=== PATIENT | male | born 1960 | race African-American/Black ===

== ENCOUNTER 2021-06-19 19:11 | Observation (INO) | payer OTHER ==
[2021-06-19 21:33] LABS: BASO % 1.2 % (0-2.0); EOS % 3.1 % (0-4.5); HEMATOCRIT 38.1 % (35.4-49); HEMOGLOBIN 12.7 GM/dL (11.7-16.9); LYMPH % 30.5 % (8-40); MCH 27.9 pg (25.7-33.7); MCHC 33.3 g/dl (32.0-35.9); MEAN CELL VOLUME 83.9 fl (80-96); MEAN PLT VOLUME 7.7 fl (7.5-11.1); NEUT % 57.2 % (42.8-82.8); PLATELET COUNT 274 10^3/uL (134-434); RBC 4.54 M/mm3 (4.00-5.60); RDW 15.7 % (11.9-15.9)
[2021-06-19 21:56] LABS: CALCIUM 8.7 mg/dL (8.5-10.1)
[2021-06-19 21:57] LABS: ALBUMIN 3.1 g/dl (3.4-5.0); BLOOD UREA NITROGEN 12.2 mg/dL (7-18); MAGNESIUM 2.3 mg/dL (1.8-2.4)
[2021-06-19 22:00] LABS: CREATININE 1.1 mg/dL (0.55-1.3)
[2021-06-19 22:01] LABS: BILIRUBIN,TOTAL 0.3 mg/dL (0.2-1); TOT PROT 7.4 g/dl (6.4-8.2)
[2021-06-19 22:05] LABS: N-TERMINAL BNP 67.4 pg/ml (5-125)
[2021-06-20] MEDS ORDERED: INSULIN (LEVEMIR) 100 UNITS/ML UNITS SQ ONE ×2 (00:47→01:25)
[2021-06-20] MEDS ORDERED: ALBUTEROL SO4 HFA INHALER IH PRN (02:11)
[2021-06-20] MEDS ORDERED: amLODIPine BESYLATE 5 MG TABLET (FP) PO ONE (04:03)
[2021-06-20 04:44] VITALS: BMI 29.5
[2021-06-20] MEDS: BRIMONIDINE TARTRATE 0.15% OPHTHALMIC 5 ML BOTTLE OS SCH ×3 (06:02→21:18)
[2021-06-20] MEDS: INSULIN SLIDING SCALE (NOVOLOG) 1 VIAL SQ SCH ×3 (06:03→17:51)
[2021-06-20 08:01] LABS: HEMATOCRIT 36.4 % (35.4-49); HEMOGLOBIN 12.3 GM/dL (11.7-16.9); MCH 27.9 pg (25.7-33.7); MCHC 33.7 g/dl (32.0-35.9); MEAN CELL VOLUME 82.9 fl (80-96); MEAN PLT VOLUME 7.7 fl (7.5-11.1); PLATELET COUNT 237 10^3/uL (134-434); RDW 15.2 % (11.9-15.9); WHITE BLOOD COUNT 6.1 K/mm3 (4.0-10.0)
[2021-06-20 08:22] LABS: CALCIUM 8.5 mg/dL (8.5-10.1)
[2021-06-20 08:23] LABS: ALBUMIN 3.1 g/dl (3.4-5.0); BLOOD UREA NITROGEN 13.1 mg/dL (7-18); MAGNESIUM 1.9 mg/dL (1.8-2.4)
[2021-06-20 08:26] LABS: CREATININE 0.9 mg/dL (0.55-1.3); PHOSPHOROUS 3.8 mg/dL (2.5-4.9)
[2021-06-20 08:27] LABS: TOT PROT 7.2 g/dl (6.4-8.2)
[2021-06-20 08:28] LABS: BILIRUBIN,TOTAL 0.5 mg/dL (0.2-1)
[2021-06-20] MEDS ORDERED: PATIENT'S OWN MEDICATION (NON-FORMULARY) (Dorzolamide Hcl/Timolol Maleat [Cosopt Eye Drops OP SCH (10:00)
[2021-06-20] MEDS: BUDESONIDE/FORMETEROL FUMARATE 160/4.5 mcg INHALER IH SCH ×2 (11:15→21:19)
[2021-06-20] MEDS: levETIRAcetam 500 MG TABLET (FP) PO SCH ×2 (11:15→21:18)
[2021-06-20] MEDS: PANTOPRAZOLE 40 MG TABLET PO SCH (11:15)
[2021-06-20] MEDS: ENOXAPARIN NA (PORCINE) 40 MG/0.4 ML DISP.SYRIN SQ SCH (11:15)
[2021-06-20] MEDS ORDERED: PATIENT'S OWN MEDICATION (NON-FORMULARY) (Dorzolamide Hcl/Timolol Maleat [Cosopt Eye Drops OU SCH (15:23)
[2021-06-20] MEDS ORDERED: NIFEdipine E.R 60 MG TABLET PO ONE (17:00)
[2021-06-20] MEDS: CLOTRIMAZOLE/BETAMET DIPROP 15 GM TUBE TP SCH ×2 (17:52→21:18)
[2021-06-20] MEDS: DORZOLAMIDE 2% HCL OPHTHALMIC SOLUTION 10 ML BOTTLE OU SCH (22:25)
[2021-06-20] MEDS: TIMOLOL 0.5% OPHTHALMIC SOL 5 ML BOTTLE OU SCH (22:26)
[2021-06-20] MEDS ORDERED: DEXAMETHASONE 0.5 MG TABLET PO ONE (23:00)
[2021-06-20] MEDS ORDERED: MELATONIN 5 MG TABLETS PO ONE (23:32)
[2021-06-21] MEDS ORDERED: oxyCODONE HCL 5 MG TABLET PO ONE (01:41)
[2021-06-21] MEDS: BRIMONIDINE TARTRATE 0.15% OPHTHALMIC 5 ML BOTTLE OS SCH (06:18)
[2021-06-21] MEDS: INSULIN SLIDING SCALE (NOVOLOG) 1 VIAL SQ SCH (06:18)
[2021-06-21 09:03] VITALS: BP 140/87; PULSE 80; TEMP 98
[2021-06-21] MEDS ORDERED: NIFEdipine E.R 60 MG TABLET PO SCH (10:00)
[2021-06-21] MEDS: CLOTRIMAZOLE/BETAMET DIPROP 15 GM TUBE TP SCH (11:22)
[2021-06-21] MEDS: levETIRAcetam 500 MG TABLET (FP) PO SCH (11:22)
[2021-06-21] MEDS: ENOXAPARIN NA (PORCINE) 40 MG/0.4 ML DISP.SYRIN SQ SCH (11:22)
[2021-06-21] MEDS: PANTOPRAZOLE 40 MG TABLET PO SCH (11:22)
[2021-06-21] MEDS: BUDESONIDE/FORMETEROL FUMARATE 160/4.5 mcg INHALER IH SCH (11:23)
[2021-06-21] MEDS: TIMOLOL 0.5% OPHTHALMIC SOL 5 ML BOTTLE OU SCH (11:23)
[2021-06-21] MEDS: DORZOLAMIDE 2% HCL OPHTHALMIC SOLUTION 10 ML BOTTLE OU SCH (11:23)
== END 2021-06-21 10:22 | disposition left against medical advice (07) ==
LOC: JER 19:11 → JERBED 21:27 → INTOOBSV 21:27 → J5S 06-20 04:01
PROVIDERS: ADMIT Hospitalist
PROC: 3E013VG Introduction of Insulin into Subcutaneous Tissue, Percutaneous Approach (ICD-10-PCS; principal; 2021-06-19)
DX: Z04.89 Encounter for examination and observation for other specified reasons (principal); Z87.820 Personal history of traumatic brain injury; M87.059 Idiopathic aseptic necrosis of unspecified femur; D32.9 Benign neoplasm of meninges, unspecified; M62.81 Muscle weakness (generalized); M79.606 Pain in leg, unspecified; E11.65 Type 2 diabetes mellitus with hyperglycemia; D32.0 Benign neoplasm of cerebral meninges; H54.7 Unspecified visual loss; I10 Essential (primary) hypertension; J45.909 Unspecified asthma, uncomplicated; R26.2 Difficulty in walking, not elsewhere classified; M54.9 Dorsalgia, unspecified
CPT/HCPCS: 36415; 71045-TC-FY; 74177-TC; 80053; 82570; 82962; 83735; 83880; 84100; 84585; 85025; 85027; 93005; 93010; 93970-TC; 99285-25; C9803; G0378; J8540; Q9967; U0003; U0005

== ENCOUNTER 2024-01-26 12:52 | Inpatient (IN) | payer OTHER ==
[2024-01-26 15:20] LABS: BASO % 0.5 % (0-2.0); EOS % 3.3 % (0-4.5); HEMATOCRIT 33.7 % (35.4-49); LYMPH % 28.6 % (8-40); MCH 27.6 pg (25.7-33.7); MCHC 32.6 g/dl (32.0-35.9); MEAN CELL VOLUME 84.6 fl (80-96); MONO % 13.3 % (3.8-10.2); NEUT % 54.3 % (42.8-82.8); PLATELET COUNT 262 10^3/uL (134-434); RBC 3.98 M/mm3 (4.00-5.60); RDW 13.9 % (11.9-15.9); WHITE BLOOD COUNT 9.3 K/mm3 (4.0-10.0)
[2024-01-26 15:45] LABS: POTASSIUM 4.8 mmol/L (3.5-5.1)
[2024-01-26 15:47] LABS: CALCIUM 8.9 mg/dL (8.5-10.1)
[2024-01-26 15:48] LABS: ALBUMIN 2.9 g/dl (3.4-5.0); BLOOD UREA NITROGEN 47.2 mg/dL (7-18); MAGNESIUM 2.6 mg/dL (1.8-2.4)
[2024-01-26 15:51] LABS: CREATININE 1.4 mg/dL (0.55-1.3)
[2024-01-26 15:52] LABS: BILIRUBIN,TOTAL 0.2 mg/dL (0.2-1); TOT PROT 7.1 g/dl (6.4-8.2)
[2024-01-26] MEDS: SODIUM CHLORIDE 1,000 ML IV STA (16:48)
[2024-01-26] MEDS: D5-1/2NS+20 MEQ KCL - 20 MEQ/1,000 ML INFUS.BAG IV SCH (16:49)
[2024-01-26 18:16] LABS: HIV INTERPRETATION NEGATIVE (NEGATIVE)
[2024-01-26 19:57] VITALS: BMI 20.3
[2024-01-26] MEDS: ALBUTEROL SO4 2.5/IPRATROPIUM 0.5 INH SOL 3 ML VIAL.NEB. NEB SCH (20:00)
[2024-01-26] MEDS ORDERED: PATIENT'S OWN MEDICATION (NON-FORMULARY) (Brivaracetam 100 MG Tablet) PO SCH (22:00)
[2024-01-26] MEDS: GABAPENTIN 100 MG CAPSULE PO SCH (22:47)
[2024-01-26] MEDS: levETIRAcetam 500 MG TABLET (FP) PO SCH (22:47)
[2024-01-26] MEDS: traZODone HCL 50 MG TABLET (FP) PO SCH (22:47)
[2024-01-26] MEDS: HEPARIN NA (PORCINE) 5,000 UNITS/ML 1ML VIAL SQ SCH (22:48)
[2024-01-26] MEDS: BRIMONIDINE TARTRATE 0.15% OPHTHALMIC 5 ML BOTTLE OS SCH (23:08)
[2024-01-26] MEDS: DORZOLAMIDE HCL/TIMOLOL OPHTHALMIC SOLUTION 10 ML BOTTLE OD SCH (23:08)
[2024-01-26] MEDS: BUDESONIDE/FORMETEROL FUMARATE 160/4.5 mcg INHALER IH SCH (23:09)
[2024-01-27] MEDS: levETIRAcetam 500 MG/5 ML INJECTION VIAL IVPB ONE (01:46)
[2024-01-27] MEDS: PANTOPRAZOLE 40 MG TABLET PO SCH (09:55)
[2024-01-27] MEDS ORDERED: PATIENT'S OWN MEDICATION (NON-FORMULARY) (Tenofovir Alafenamide 25 MG Tablet) PO SCH (10:00)
[2024-01-27 10:01] LABS: BASO % 0.6 % (0-2.0); EOS % 2.4 % (0-4.5); HEMATOCRIT 29.2 % (35.4-49); HEMOGLOBIN 9.7 GM/dL (11.7-16.9); LYMPH % 32.3 % (8-40); MCH 27.7 pg (25.7-33.7); MCHC 33.2 g/dl (32.0-35.9); MEAN CELL VOLUME 83.2 fl (80-96); MEAN PLT VOLUME 8.2 fl (7.5-11.1); MONO % 12.2 % (3.8-10.2); NEUT % 52.5 % (42.8-82.8); PLATELET COUNT 238 10^3/uL (134-434); RBC 3.51 M/mm3 (4.00-5.60); RDW 13.5 % (11.9-15.9); WHITE BLOOD COUNT 6.9 K/mm3 (4.0-10.0)
[2024-01-27 10:15] LABS: POTASSIUM 3.7 mmol/L (3.5-5.1)
[2024-01-27 10:22] LABS: ALBUMIN 2.5 g/dl (3.4-5.0); CALCIUM 8.6 mg/dL (8.5-10.1); MAGNESIUM 2.3 mg/dL (1.8-2.4)
[2024-01-27 10:25] LABS: CREATININE 1.1 mg/dL (0.55-1.3)
[2024-01-27 10:27] LABS: BILIRUBIN,TOTAL 0.2 mg/dL (0.2-1); TOT PROT 6.4 g/dl (6.4-8.2)
[2024-01-27] MEDS: DEXTROSE 5%-0.45% SALINE 1,000 ML IV SCH (14:27)
[2024-01-28] MEDS: levETIRAcetam 500 MG/5 ML INJECTION VIAL IVPB SCH (02:56)
[2024-01-29] MEDS: PNEUMOC 20-VAL CONJ-DIP CRM/PF 0.5 ML SYRINGE IM ONE (21:37)
[2024-01-30] MEDS: ASPIRIN COATED 81 MG TABLET.EC PO SCH (10:35)
[2024-01-30] MEDS: ATORVASTATIN CA 40 MG TABLET (FP) PO SCH (22:05)
[2024-01-31 09:39] LABS: INR 1.23 (0.83-1.09); PROTHROMBIN TIME (PATIENT) 13.8 SEC (9.7-13.0)
[2024-01-31 09:42] LABS: BASO % 0.4 % (0-2.0); EOS % 2.8 % (0-4.5); HEMATOCRIT 27.9 % (35.4-49); HEMOGLOBIN 9.4 GM/dL (11.7-16.9); LYMPH % 31.6 % (8-40); MCH 27.8 pg (25.7-33.7); MCHC 33.6 g/dl (32.0-35.9); MEAN CELL VOLUME 82.8 fl (80-96); MEAN PLT VOLUME 7.7 fl (7.5-11.1); MONO % 12.2 % (3.8-10.2); PLATELET COUNT 233 10^3/uL (134-434); RBC 3.37 M/mm3 (4.00-5.60); RDW 13.6 % (11.9-15.9); WHITE BLOOD COUNT 6.8 K/mm3 (4.0-10.0)
[2024-01-31 10:01] LABS: POTASSIUM 3.7 mmol/L (3.5-5.1)
[2024-01-31 10:04] LABS: CALCIUM 8.3 mg/dL (8.5-10.1)
[2024-01-31 10:06] LABS: ALBUMIN 2.5 g/dl (3.4-5.0); BLOOD UREA NITROGEN 19.8 mg/dL (7-18)
[2024-01-31 10:08] LABS: CREATININE 1.4 mg/dL (0.55-1.3)
[2024-01-31 10:11] LABS: BILIRUBIN,TOTAL 0.3 mg/dL (0.2-1); TOT PROT 6.5 g/dl (6.4-8.2)
[2024-01-31] MEDS: LATANOPROST 0.005% OPHTH SOLN 2.5ML BOTTLE OU SCH (22:14)
[2024-02-02] MEDS: IOHEXOL (OMNIPAQUE IV) 350 MG/ML - 100 ML BOTTLE GT ONE (17:29)
[2024-02-03] MEDS: PANTOPRAZOLE SODIUM 40 MG VIAL IVPB ONE (09:12)
[2024-02-03 11:21] LABS: BASO % 0.5 % (0-2.0); EOS % 2.7 % (0-4.5); HEMATOCRIT 30.8 % (35.4-49); HEMOGLOBIN 10.2 GM/dL (11.7-16.9); LYMPH % 25.9 % (8-40); MCH 27.5 pg (25.7-33.7); MCHC 33.2 g/dl (32.0-35.9); MEAN CELL VOLUME 82.8 fl (80-96); MEAN PLT VOLUME 7.7 fl (7.5-11.1); MONO % 10.6 % (3.8-10.2); NEUT % 60.3 % (42.8-82.8); PLATELET COUNT 271 10^3/uL (134-434); RBC 3.72 M/mm3 (4.00-5.60); RDW 13.3 % (11.9-15.9)
[2024-02-03 11:36] LABS: POTASSIUM 3.8 mmol/L (3.5-5.1)
[2024-02-03 11:41] LABS: ALBUMIN 2.7 g/dl (3.4-5.0); BLOOD UREA NITROGEN 11.7 mg/dL (7-18)
[2024-02-03 11:42] LABS: CALCIUM 8.9 mg/dL (8.5-10.1)
[2024-02-03 11:44] LABS: CREATININE 1.2 mg/dL (0.55-1.3); PHOSPHOROUS 3.1 mg/dL (2.5-4.9)
[2024-02-03 11:46] LABS: BILIRUBIN,TOTAL 0.3 mg/dL (0.2-1); TOT PROT 6.8 g/dl (6.4-8.2)
[2024-02-03] MEDS: amLODIPine BESYLATE 5 MG TABLET (FP) NGT SCH (14:33)
[2024-02-03] MEDS: traZODone HCL 50 MG TABLET (FP) NGT SCH (21:46)
[2024-02-03] MEDS: GABAPENTIN 250 MG/5 ML ORAL SOLUTION, 470 ML BOTTLE NGT SCH (21:47)
[2024-02-03] MEDS: ATORVASTATIN CA 40 MG TABLET (FP) NGT SCH (21:47)
[2024-02-04] MEDS: ACETAMINOPHEN 325 MG TABLET (FP) PO PRN (20:48)
[2024-02-05] MEDS ORDERED: levETIRAcetam 500 MG/5 ML ORAL SOLUTION (UNIT-DOSE CUPS) PO SCH (12:15)
[2024-02-05] MEDS: levETIRAcetam 500 MG/5 ML ORAL SOLUTION (UNIT-DOSE CUPS) GT SCH (12:16)
[2024-02-06] MEDS ORDERED: ACETAMINOPHEN 650 MG/20.3 ML ORAL SOLUTION (CUPS) PO PRN (10:17)
[2024-02-06 11:04] LABS: HEMATOCRIT 26.3 % (35.4-49); HEMOGLOBIN 8.7 GM/dL (11.7-16.9); MCH 27.8 pg (25.7-33.7); MEAN PLT VOLUME 8.4 fl (7.5-11.1); PLATELET COUNT 311 10^3/uL (134-434); RBC 3.13 M/mm3 (4.00-5.60); RDW 13.9 % (11.9-15.9); WHITE BLOOD COUNT 15.4 K/mm3 (4.0-10.0)
[2024-02-06 11:19] LABS: POTASSIUM 4.8 mmol/L (3.5-5.1)
[2024-02-06 11:25] LABS: BLOOD UREA NITROGEN 25.4 mg/dL (7-18); CALCIUM 8.2 mg/dL (8.5-10.1)
[2024-02-06 11:26] LABS: ALBUMIN 2.4 g/dl (3.4-5.0)
[2024-02-06 11:29] LABS: CREATININE 1.3 mg/dL (0.55-1.3)
[2024-02-06 11:30] LABS: BILIRUBIN,TOTAL 0.3 mg/dL (0.2-1); TOT PROT 6.4 g/dl (6.4-8.2)
[2024-02-07] MEDS: levETIRAcetam 500 MG/5 ML INJECTION VIAL IVPB SCH (13:45)
[2024-02-07] MEDS: DEXTROSE 5%-NORMAL SALINE 1,000 ML IV SCH (14:44)
[2024-02-07] MEDS ORDERED: GLUCAGON 1 MG KIT ONE (17:53)
[2024-02-07] MEDS: GLUCAGON 1 MG KIT IVPUSH ONE (18:04)
[2024-02-07] MEDS ORDERED: FENTANYL CITRATE/PF 50 MCG/ML VIAL ONE (18:06)
[2024-02-07] MEDS: FENTANYL CITRATE/PF 50 MCG/ML VIAL IVPUSH ONE (18:08)
[2024-02-07 20:45] VITALS: RESP 18
[2024-02-08 13:31] LABS: HEMATOCRIT 30.6 % (35.4-49); HEMOGLOBIN 10.2 GM/dL (11.7-16.9); MCH 27.3 pg (25.7-33.7); MCHC 33.3 g/dl (32.0-35.9); MEAN CELL VOLUME 81.9 fl (80-96); PLATELET COUNT 319 10^3/uL (134-434); RBC 3.74 M/mm3 (4.00-5.60); RDW 13.9 % (11.9-15.9); WHITE BLOOD COUNT 7.7 K/mm3 (4.0-10.0)
[2024-02-08 13:57] LABS: POTASSIUM 4.2 mmol/L (3.5-5.1)
[2024-02-08 14:03] LABS: BLOOD UREA NITROGEN 19.5 mg/dL (7-18); CALCIUM 8.5 mg/dL (8.5-10.1)
[2024-02-08 14:04] LABS: ALBUMIN 2.5 g/dl (3.4-5.0)
[2024-02-08 14:07] LABS: CREATININE 1.1 mg/dL (0.55-1.3)
[2024-02-08 14:09] LABS: BILIRUBIN,TOTAL 0.4 mg/dL (0.2-1)
[2024-02-09 10:47] VITALS: PULSE 65
[2024-02-09 13:06] VITALS: BP 154/84; TEMP 98.4
== END 2024-02-09 15:38 | DRG 391 ==
LOC: JER 12:52 → JERBED 16:34 → J6S 17:48
PROVIDERS: ADMIT Family Medicine; ATTEND Internal Medicine
PROC: 0DH63UZ Insertion of Feeding Device into Stomach, Percutaneous Approach (ICD-10-PCS; principal; 2024-02-07)
DX: R13.12 Dysphagia, oropharyngeal phase (principal); R53.2 Functional quadriplegia; E44.0 Moderate protein-calorie malnutrition; R62.7 Adult failure to thrive; E86.0 Dehydration; D64.9 Anemia, unspecified; I10 Essential (primary) hypertension; J45.909 Unspecified asthma, uncomplicated; E11.9 Type 2 diabetes mellitus without complications; G93.89 Other specified disorders of brain; D44.4 Neoplasm of uncertain behavior of craniopharyngeal duct; Z68.20 Body mass index [BMI] 20.0-20.9, adult
CPT/HCPCS: 0241U-QW; 36415; 49440; 70450-TC; 70551-TC; 71045-TC-FY; 74018-TC-FY; 74176-TC; 74230-TC-FY; 80053; 82962; 83735; 84100; 84443; 84484; 85025; 85027; 85610; 87389; 90677; 92611-GN; 93005; 93010; 93306-TC; 93880-TC; 94640; 95816; 97161-GP; 99285-25; G0009; J1644

== ENCOUNTER 2024-02-13 08:05 | Emergency (ER) | payer OTHER ==
[2024-02-13 08:13] VITALS: TEMP 97.3; BMI 25.7
[2024-02-13 09:09] LABS: BASO % 0.9 % (0-2.0); EOS % 2.1 % (0-4.5); HEMATOCRIT 31.6 % (35.4-49); HEMOGLOBIN 10.5 GM/dL (11.7-16.9); MCH 27.2 pg (25.7-33.7); MCHC 33.2 g/dl (32.0-35.9); MEAN CELL VOLUME 81.7 fl (80-96); MEAN PLT VOLUME 7.3 fl (7.5-11.1); MONO % 7.2 % (3.8-10.2); NEUT % 65.8 % (42.8-82.8); PLATELET COUNT 450 10^3/uL (134-434); RBC 3.88 M/mm3 (4.00-5.60); RDW 13.7 % (11.9-15.9); WHITE BLOOD COUNT 8.2 K/mm3 (4.0-10.0)
[2024-02-13 09:20] LABS: INR 1.23 (0.83-1.09); PROTHROMBIN TIME (PATIENT) 14.1 SEC (9.7-13.0)
[2024-02-13 09:22] LABS: ACTIVATED PTT 37.2 SECONDS (25.2-36.5)
[2024-02-13 09:39] LABS: POTASSIUM 4.2 mmol/L (3.5-5.1)
[2024-02-13 09:45] LABS: ALBUMIN 2.7 g/dl (3.4-5.0); BLOOD UREA NITROGEN 21.8 mg/dL (7-18); CALCIUM 8.7 mg/dL (8.5-10.1)
[2024-02-13 09:49] LABS: CREATININE 1.1 mg/dL (0.55-1.3)
[2024-02-13 09:50] LABS: BILIRUBIN,TOTAL 0.4 mg/dL (0.2-1); TOT PROT 7.4 g/dl (6.4-8.2)
[2024-02-13 18:27] VITALS: RESP 12
[2024-02-14 01:05] VITALS: BP 136/87; PULSE 89
== END 2024-02-14 01:10 ==
LOC: JER 08:05
DX: K94.23 Gastrostomy malfunction (principal); R74.01 Elevation of levels of liver transaminase levels
CPT/HCPCS: 36415; 49440; 71045-TC-FY; 76705-TC; 80053; 85025; 85610; 85730; 86850; 86900; 86901; 93005; 93010

== ENCOUNTER 2024-02-15 15:30 | Inpatient (IN) | payer OTHER ==
[2024-02-15 17:03] VITALS: BMI 25.7
[2024-02-15 17:06] LABS: BASO % 0.4 % (0-2.0); EOS % 0.1 % (0-4.5); HEMATOCRIT 31.9 % (35.4-49); HEMOGLOBIN 10.4 GM/dL (11.7-16.9); LYMPH % 6.9 % (8-40); MCH 26.9 pg (25.7-33.7); MCHC 32.5 g/dl (32.0-35.9); MEAN CELL VOLUME 82.8 fl (80-96); MONO % 6.5 % (3.8-10.2); NEUT % 86.1 % (42.8-82.8); PLATELET COUNT 424 10^3/uL (134-434); RBC 3.85 M/mm3 (4.00-5.60); RDW 13.9 % (11.9-15.9); WHITE BLOOD COUNT 18.1 K/mm3 (4.0-10.0)
[2024-02-15] MEDS ORDERED: ACETAMINOPHEN INJECTION 100 ML ONE (17:18)
[2024-02-15 17:21] LABS: VENOUS BASE EXCESS 2.4 mmol/L (-2-2); VENOUS O2 SATURATION 76.1 % (70-80); VENOUS PCO2 44.3 mmHg (38-52); VENOUS PH 7.41 (7.310-7.410)
[2024-02-15] MEDS: ACETAMINOPHEN 1000 MG/100 ML BAG IVPB ONE (17:27)
[2024-02-15] MEDS: LACTATED RINGERS SOLUTION 1000 ML INFUS.BAG IV ONE ×2 (17:28→20:26)
[2024-02-15] MEDS ORDERED: PIPERACILLIN/TAZOB 4.5 GM 4.5 GM/100 ML BAG IVPB ONE (17:29)
[2024-02-15 17:40] LABS: POTASSIUM 4.3 mmol/L (3.5-5.1)
[2024-02-15 17:42] LABS: CALCIUM 8.7 mg/dL (8.5-10.1)
[2024-02-15 17:43] LABS: ALBUMIN 2.5 g/dl (3.4-5.0); MAGNESIUM 2.4 mg/dL (1.8-2.4)
[2024-02-15 17:46] LABS: CREATININE 1.6 mg/dL (0.55-1.3)
[2024-02-15 17:47] LABS: BILIRUBIN,TOTAL 0.5 mg/dL (0.2-1); TOT PROT 7.4 g/dl (6.4-8.2)
[2024-02-15] MEDS: PIPERACILLIN/TAZOB 4.5 GM 4.5 GM in DEXTROSE 5%-WATER 100 ML IVPB ONE (18:15)
[2024-02-15] MEDS: VANCOMYCIN PREMIX 1.5 GM 1,500 MG/300 ML BAG IVPB ONE (18:26)
[2024-02-15 18:52] LABS: EPI CELLS 13 /uL (0-25.1); HYALINE CASTS 1 /uL (0-3.1); URINE APPEARANCE CLEAR; URINE BACTERIA 4 /uL (0-1359); URINE BILIRUBIN NEGATIVE (NEGATIVE); URINE COLOR YELLOW; URINE GLUCOSE (UA) NEGATIVE (NEGATIVE); URINE KETONE NEGATIVE (NEGATIVE); URINE LEUK ESTERASE NEGATIVE (NEGATIVE); URINE NITRITE NEGATIVE (NEGATIVE); URINE PROTEIN 2+ (NEGATIVE); URINE WBC 8 /uL (0-25.8)
[2024-02-15 18:59] LABS: URINE RBC 107.2 /uL (0-23.9)
[2024-02-15] MEDS: VANCOMYCIN HCL 1,500 MG in DEXTROSE 5%-WATER - 500 ML IVPB ONE (19:36)
[2024-02-15] MEDS: SODIUM CHLORIDE 0.45% 1,000 ML IV SCH (21:18)
[2024-02-16] MEDS: INSULIN ASPART SLIDING SCALE (NOVOLOG) 1 VIAL SQ SCH ×2 (02:33→16:01)
[2024-02-16] MEDS: ACETAMINOPHEN 1000 MG/100 ML BAG IVPB PRN ×2 (03:21→15:32)
[2024-02-16] MEDS ORDERED: ALBUTEROL SO4 0.083% IH SOL 2.5 MG/3 ML VIAL.NEB. NEB PRN (03:28)
[2024-02-16] MEDS: PIPERACILLIN/TAZOB 3.375 GM 3.375 GM in DEXTROSE 5%-WATER - 50 ML IVPB SCH (04:24)
[2024-02-16] MEDS: VANCOMYCIN/WATER 1250 MG 1,250 MG/250 ML BAG IVPB SCH (06:08)
[2024-02-16] MEDS: BRIMONIDINE TARTRATE 0.15% OPHTHALMIC 5 ML BOTTLE OS SCH (06:08)
[2024-02-16 07:31] LABS: BASO % 0.3 % (0-2.0); EOS % 0.1 % (0-4.5); HEMATOCRIT 28.8 % (35.4-49); HEMOGLOBIN 9.3 GM/dL (11.7-16.9); LYMPH % 8.4 % (8-40); MCH 26.7 pg (25.7-33.7); MCHC 32.2 g/dl (32.0-35.9); MEAN PLT VOLUME 7.8 fl (7.5-11.1); MONO % 5.8 % (3.8-10.2); NEUT % 85.4 % (42.8-82.8); PLATELET COUNT 375 10^3/uL (134-434); RBC 3.47 M/mm3 (4.00-5.60); RDW 13.9 % (11.9-15.9); WHITE BLOOD COUNT 17.1 K/mm3 (4.0-10.0)
[2024-02-16 07:57] LABS: POTASSIUM 3.7 mmol/L (3.5-5.1)
[2024-02-16 07:58] LABS: BLOOD UREA NITROGEN 29.6 mg/dL (7-18); CALCIUM 8.3 mg/dL (8.5-10.1)
[2024-02-16 08:02] LABS: CREATININE 1.4 mg/dL (0.55-1.3)
[2024-02-16] MEDS ORDERED: INSULIN ASPART SLIDING SCALE (NOVOLOG) 1 VIAL SQ ONE (09:08)
[2024-02-16] MEDS: PANTOPRAZOLE 40 MG TABLET PO SCH (09:34)
[2024-02-16] MEDS: SILVER SULFADIAZINE 1% TOP CREAM 50 GM JAR TP SCH ×2 (09:36)
[2024-02-16] MEDS: BUDESONIDE/FORMETEROL FUMARATE 160/4.5 mcg INHALER IH SCH (09:36)
[2024-02-16] MEDS: levETIRAcetam 500 MG TABLET (FP) PO SCH (11:56)
[2024-02-16] MEDS: methylPREDNISolone NA SUCC 40 MG/1 ML VIAL IVPUSH SCH (13:15)
[2024-02-16] MEDS: levETIRAcetam 500 MG/5 ML INJECTION VIAL IVPB SCH (13:15)
[2024-02-16] MEDS: SODIUM CHLORIDE 0.45% 1,000 ML IV SCH (13:15)
[2024-02-16] MEDS: HEPARIN NA (PORCINE) 5,000 UNITS/ML 1ML VIAL SQ SCH (13:16)
[2024-02-16] MEDS: DORZOLAMIDE HCL/TIMOLOL OPHTHALMIC SOLUTION 10 ML BOTTLE OD SCH (17:37)
[2024-02-16] MEDS: TIMOLOL 0.5% OPHTHALMIC SOL 5 ML BOTTLE OD SCH (21:23)
[2024-02-16] MEDS: LATANOPROST 0.005% OPHTH SOLN 2.5ML BOTTLE OS SCH (21:23)
[2024-02-16] MEDS: DORZOLAMIDE 2% HCL OPHTHALMIC SOLUTION 10 ML BOTTLE OD SCH (21:23)
[2024-02-17 08:33] LABS: POTASSIUM 4.8 mmol/L (3.5-5.1)
[2024-02-17 08:35] LABS: BASO % 0.2 % (0-2.0); HEMATOCRIT 31.1 % (35.4-49); HEMOGLOBIN 9.9 GM/dL (11.7-16.9); MCH 26.8 pg (25.7-33.7); MCHC 31.8 g/dl (32.0-35.9); MEAN CELL VOLUME 84.4 fl (80-96); MEAN PLT VOLUME 8.3 fl (7.5-11.1); MONO % 3.6 % (3.8-10.2); NEUT % 87.2 % (42.8-82.8); PLATELET COUNT 394 10^3/uL (134-434); RBC 3.68 M/mm3 (4.00-5.60); RDW 13.8 % (11.9-15.9); WHITE BLOOD COUNT 17.7 K/mm3 (4.0-10.0)
[2024-02-17 08:44] LABS: ALBUMIN 2.4 g/dl (3.4-5.0); BLOOD UREA NITROGEN 32.1 mg/dL (7-18)
[2024-02-17 08:48] LABS: BILIRUBIN,TOTAL 0.5 mg/dL (0.2-1); TOT PROT 7.4 g/dl (6.4-8.2)
[2024-02-17 08:49] LABS: CREATININE 1.6 mg/dL (0.55-1.3)
[2024-02-17] MEDS: PANTOPRAZOLE SODIUM 40 MG VIAL IVPUSH SCH (14:08)
[2024-02-17] MEDS: VANCOMYCIN/WATER 1250 MG 1,250 MG/250 ML BAG IVPB SCH (14:34)
[2024-02-17] MEDS: PIPERACILLIN/TAZOB 3.375 GM 3.375 GM in DEXTROSE 5%-WATER - 50 ML IVPB SCH (14:34)
[2024-02-17] MEDS: PIPERACILLIN/TAZOB 3.375 GM 50 ML IVPB SCH (16:40)
[2024-02-18 08:43] LABS: ALBUMIN 2.2 g/dl (3.4-5.0); BLOOD UREA NITROGEN 43.3 mg/dL (7-18)
[2024-02-18 08:45] LABS: CALCIUM 8.5 mg/dL (8.5-10.1)
[2024-02-18 08:46] LABS: CREATININE 1.5 mg/dL (0.55-1.3)
[2024-02-18 08:47] LABS: BILIRUBIN,TOTAL 0.4 mg/dL (0.2-1)
[2024-02-18 08:48] LABS: TOT PROT 6.7 g/dl (6.4-8.2)
[2024-02-18 09:07] LABS: BASO % 0.6 % (0-2.0); EOS % 0.1 % (0-4.5); HEMATOCRIT 29.8 % (35.4-49); HEMOGLOBIN 9.7 GM/dL (11.7-16.9); LYMPH % 11.6 % (8-40); MCH 26.9 pg (25.7-33.7); MCHC 32.5 g/dl (32.0-35.9); MEAN CELL VOLUME 82.7 fl (80-96); MEAN PLT VOLUME 8.2 fl (7.5-11.1); MONO % 4.1 % (3.8-10.2); NEUT % 83.6 % (42.8-82.8); PLATELET COUNT 404 10^3/uL (134-434); RDW 13.8 % (11.9-15.9); WHITE BLOOD COUNT 11.9 K/mm3 (4.0-10.0)
[2024-02-18 09:31] LABS: POTASSIUM 4.4 mmol/L (3.5-5.1)
[2024-02-18 09:34] LABS: ALBUMIN 2.2 g/dl (3.4-5.0); BLOOD UREA NITROGEN 43.6 mg/dL (7-18); CALCIUM 8.6 mg/dL (8.5-10.1)
[2024-02-18 09:38] LABS: CREATININE 1.6 mg/dL (0.55-1.3)
[2024-02-18 09:39] LABS: BILIRUBIN,TOTAL 0.4 mg/dL (0.2-1); TOT PROT 6.8 g/dl (6.4-8.2)
[2024-02-18] MEDS: AMINO ACIDS 4.25%/D5W 1,000 ML IV SCH (17:55)
[2024-02-18] MEDS: hydrALAZINE HCL 20 MG/ML VIAL IVPUSH ONE (18:15)
[2024-02-19] MEDS: hydrALAZINE HCL 20 MG/ML VIAL IVPUSH ONE (06:50)
[2024-02-19 08:19] LABS: BASO % 0.3 % (0-2.0); HEMATOCRIT 26.2 % (35.4-49); HEMOGLOBIN 8.7 GM/dL (11.7-16.9); LYMPH % 15.2 % (8-40); MCH 27.3 pg (25.7-33.7); MCHC 33.4 g/dl (32.0-35.9); MEAN CELL VOLUME 81.5 fl (80-96); MEAN PLT VOLUME 8.2 fl (7.5-11.1); MONO % 6.3 % (3.8-10.2); NEUT % 78.2 % (42.8-82.8); PLATELET COUNT 395 10^3/uL (134-434); RBC 3.21 M/mm3 (4.00-5.60); WHITE BLOOD COUNT 10.7 K/mm3 (4.0-10.0)
[2024-02-19 08:48] LABS: POTASSIUM 3.9 mmol/L (3.5-5.1)
[2024-02-19 08:50] LABS: CALCIUM 8.1 mg/dL (8.5-10.1)
[2024-02-19 08:51] LABS: ALBUMIN 2.1 g/dl (3.4-5.0); BLOOD UREA NITROGEN 35.8 mg/dL (7-18)
[2024-02-19 08:54] LABS: CREATININE 1.2 mg/dL (0.55-1.3)
[2024-02-19 08:56] LABS: BILIRUBIN,TOTAL 0.3 mg/dL (0.2-1); TOT PROT 6.5 g/dl (6.4-8.2)
[2024-02-20] MEDS ORDERED: hydrALAZINE HCL 20 MG/ML VIAL ONE (09:13)
[2024-02-20] MEDS: hydrALAZINE HCL 20 MG/ML VIAL IVPUSH PRN (09:16)
[2024-02-20] MEDS ORDERED: FENTANYL CITRATE/PF 50 MCG/ML VIAL ONE (09:47)
[2024-02-20] MEDS: FENTANYL CITRATE/PF 50 MCG/ML VIAL IVPUSH ONE (09:52)
[2024-02-20 11:24] LABS: INR 1.2 (0.83-1.09); PROTHROMBIN TIME (PATIENT) 13.5 SEC (9.7-13.0)
[2024-02-20 11:26] LABS: HEMATOCRIT 35.2 % (35.4-49); HEMOGLOBIN 11.5 GM/dL (11.7-16.9); MCH 26.7 pg (25.7-33.7); MCHC 32.8 g/dl (32.0-35.9); MEAN CELL VOLUME 81.6 fl (80-96); PLATELET COUNT 474 10^3/uL (134-434); RBC 4.31 M/mm3 (4.00-5.60); WHITE BLOOD COUNT 6.7 K/mm3 (4.0-10.0)
[2024-02-20 11:27] LABS: ACTIVATED PTT 34.9 SECONDS (25.2-36.5)
[2024-02-20 11:51] LABS: POTASSIUM 3.9 mmol/L (3.5-5.1)
[2024-02-20 11:54] LABS: ALBUMIN 2.5 g/dl (3.4-5.0); BLOOD UREA NITROGEN 25.4 mg/dL (7-18)
[2024-02-20 11:57] LABS: CREATININE 1.1 mg/dL (0.55-1.3)
[2024-02-20 11:58] LABS: BILIRUBIN,TOTAL 0.5 mg/dL (0.2-1)
[2024-02-20 11:59] LABS: TOT PROT 7.1 g/dl (6.4-8.2)
[2024-02-20] MEDS: LOSARTAN POTASSIUM 50 MG TABLET PO SCH (17:05)
[2024-02-21] MEDS: AMINO ACIDS/PROTEIN HYDROLYS 30 ML LIQUID.PKT PO SCH (09:16)
[2024-02-21] MEDS: ASCORBIC ACID 500 MG TABLET (FP) PO SCH (09:17)
[2024-02-21] MEDS: hydrALAZINE HCL 20 MG/ML VIAL IM ONE (13:45)
[2024-02-22] MEDS: AMOX TR/POTASSIUM CLAVULANATE 600 MG/5 ML PO SCH ×2 (07:56→18:18)
[2024-02-22] MEDS ORDERED: hydrALAZINE HCL 20 MG/ML VIAL IVPUSH PRN (13:24)
[2024-02-22] MEDS: HEPARIN NA (PORCINE) 5,000 UNITS/ML 1ML VIAL SQ SCH (15:27)
[2024-02-22] MEDS: BRIMONIDINE TARTRATE 0.15% OPHTHALMIC 5 ML BOTTLE OS SCH (15:50)
[2024-02-22] MEDS: INSULIN ASPART SLIDING SCALE (NOVOLOG) 1 VIAL SQ SCH (16:54)
[2024-02-22] MEDS: levETIRAcetam 500 MG/5 ML INJECTION VIAL IVPB SCH (22:47)
[2024-02-22] MEDS: BUDESONIDE/FORMETEROL FUMARATE 160/4.5 mcg INHALER IH SCH (22:48)
[2024-02-22] MEDS: DORZOLAMIDE 2% HCL OPHTHALMIC SOLUTION 10 ML BOTTLE OD SCH (22:49)
[2024-02-22] MEDS: TIMOLOL 0.5% OPHTHALMIC SOL 5 ML BOTTLE OD SCH (22:49)
[2024-02-22] MEDS: LATANOPROST 0.005% OPHTH SOLN 2.5ML BOTTLE OS SCH (22:50)
[2024-02-22] MEDS: SILVER SULFADIAZINE 1% TOP CREAM 50 GM JAR TP SCH (22:52)
[2024-02-23 02:29] VITALS: RESP 18
[2024-02-23 08:40] LABS: CHLORIDE 112 mmol/L (98-107); SODIUM 146 mmol/L (136-145)
[2024-02-23] MEDS: AMINO ACIDS/PROTEIN HYDROLYS 30 ML LIQUID.PKT PO SCH (08:46)
[2024-02-23 08:48] LABS: CO2 27 mmol/L (21-32); GLUCOSE,RANDOM 179 mg/dL (74-106)
[2024-02-23 08:56] LABS: ANION GAP 7 mmol/L (4-13); POTASSIUM 2.9 mmol/L (3.5-5.1)
[2024-02-23] MEDS: KCL 10 MEQ IVPB 10 MEQ/100 ML INFUS.BAG IVPB SCH (11:15)
[2024-02-23] MEDS: PANTOPRAZOLE SODIUM 40 MG VIAL IVPUSH SCH (11:28)
[2024-02-23] MEDS: ASCORBIC ACID 500 MG TABLET (FP) PO SCH (11:29)
[2024-02-23] MEDS: LOSARTAN POTASSIUM 50 MG TABLET PO SCH (11:29)
[2024-02-23] MEDS: POTASSIUM CHLORIDE ORAL LIQUID 20 MEQ/15 ML PO ONE (12:08)
[2024-02-23 12:26] LABS: POTASSIUM 3.2 mmol/L (3.5-5.1)
[2024-02-23 12:28] LABS: BLOOD UREA NITROGEN 23.5 mg/dL (7-18); CALCIUM 8.2 mg/dL (8.5-10.1)
[2024-02-23 15:35] VITALS: BP 140/92; PULSE 76; TEMP 98.8
== END 2024-02-23 18:20 | DRG 871 ==
LOC: JER 15:30 → JERBED 20:34 → J2W 02-16 02:23 → J7W 02-22 13:03
PROVIDERS: ADMIT Family Medicine; ATTEND Family Medicine
PROC: 0D20XUZ Change Feeding Device in Upper Intestinal Tract, External Approach (ICD-10-PCS; principal; 2024-02-20)
DX: A41.9 Sepsis, unspecified organism (principal); J18.9 Pneumonia, unspecified organism; R53.2 Functional quadriplegia; K94.23 Gastrostomy malfunction; N17.9 Acute kidney failure, unspecified; L89.302 Pressure ulcer of unspecified buttock, stage 2; Z21 Asymptomatic human immunodeficiency virus [HIV] infection status; E87.6 Hypokalemia; E11.9 Type 2 diabetes mellitus without complications; I10 Essential (primary) hypertension; E78.5 Hyperlipidemia, unspecified; Y83.9 Surgical procedure, unspecified as the cause of abnormal reaction of the patient, or of later complication, without mention of misadventure at the time of the procedure
CPT/HCPCS: 0241U-QW; 36415; 49440; 49450; 71045-TC-FY; 74177-TC; 76705-TC; 80048; 80053; 81003; 82803; 82962; 83605; 83735; 84484; 85025; 85027; 85610; 85730; 86850; 86900; 86901; 87040; 87086; 87481; 87899; 93005; 93010; 99285-25; E0186; J0131; J1644; Q9967